=== PATIENT | female | born 1985 | race Caucasian/White ===

== ENCOUNTER → 2021-08-06 | Day surgery (SDC) | payer OTHER ==
[2021-08-04 15:27] VITALS: BMI 21.1
[2021-08-06 12:44] VITALS: TEMP 98.4
[2021-08-06 14:55] VITALS: BP 100/48; PULSE 60
== END | disposition home or self-care (01) ==
LOC: JASU-ENDO 04:45
PROVIDERS: ATTEND Internal Medicine Gastroenterology
PROC: 0DBN8ZX Excision of Sigmoid Colon, Via Natural or Artificial Opening Endoscopic, Diagnostic (ICD-10-PCS; principal; 2021-08-06 13:30)
DX: K52.9 Noninfective gastroenteritis and colitis, unspecified (principal)
CPT/HCPCS: 81025; 88305-TC